=== PATIENT | female | born 1965 | race African-American/Black ===

== ENCOUNTER 2017-05-09 04:28 | Emergency (ER) | payer MEDICAID ==
[~2017-05-09] VITALS: Ht 162.6 cm; Wt 68.0 kg
[~2017-05-09 04:28] MED LIST: ASORBIC ACID PO; ASPI-867 PO; CLOP75TA2 PO; FLUO40CA8 PO; GLYB5TAB7 PO; LIP40 PO; LISI1TAB9 PO; METF1000 PO; METO-298 PO; MULT-1116 PO; NEURONTIN; NPH,100V SQ; OMEP20CA10 PO; PENT400T29 PO; PLAQUENIL PO; PREDNISONE PO; SEROQUEL; VICODIN; VITA15LO PO; [UNRECOGNIZED DRUG - CODE] PO; clindamycin PO
[2017-05-09] MEDS ORDERED: BACITRACIN ZINC OINT UDPKT TOP ONE (06:45)
[2017-05-09] MEDS ORDERED: KETOROLAC 60MG/2ML VIAL IM ONE (07:30)
[2017-05-09] MEDS ORDERED: IBUPROFEN 800MG TABLET PO ONE (11:00)
[2017-05-09 15:29] VITALS: BP 138/79
== END 2017-05-09 19:46 | disposition home or self-care (01) ==
LOC: ER 04:28
DX: S01.01XA Laceration without foreign body of scalp, initial encounter (principal); M25.511 Pain in right shoulder; M54.2 Cervicalgia; M32.9 Systemic lupus erythematosus, unspecified; F12.10 Cannabis abuse, uncomplicated; Y00.XXXA Assault by blunt object, initial encounter; Y93.89 Activity, other specified; Y92.488 Other paved roadways as the place of occurrence of the external cause
CPT/HCPCS: 12001; 70450; 70490; 73030; 99284; J1885; X7700; Z7610

== ENCOUNTER 2018-11-23 04:13 | Inpatient (IN) | payer MEDICAID ==
[2018-11-23] VITALS (19 sets, daily range): BP systolic 84–130; BP diastolic 46–79
[~2018-11-23] VITALS: Ht 170.2 cm; Wt 54.4 kg
[~2018-11-23 04:13] MED LIST changes: +ASA5EC PO; -ASPI-867 PO; +CLOP75TA16 PO; -CLOP75TA2 PO; +GABA800T PO; -METO-298 PO; +METO-385 PO
[2018-11-23] MEDS ORDERED: MORPHINE SULFATE 4 MG/ML CPJ (NOT FOR IM USE) IV STA (06:27)
[2018-11-23] MEDS ORDERED: VANCOMYCIN 1 G PREMIX 200 ML IV SCH (06:30)
[2018-11-23 07:01] LABS: CHLORIDE 101 mEq/L (98-107)
[2018-11-23 07:02] LABS: HEMATOCRIT. 37.2 % (36.0-48.0); HEMOGLOBIN. 11.7 g/dL (12.0-16.0); MEAN CORPUSCULAR HEMOGLOBIN 23.8 pg (28.0-32.0); MEAN CORPUSCULAR VOLUME 75.3 fL (81.0-99.0); MEAN PLATELET VOLUME 7.5 fl (7.4-10.4); PLATELET 256 x1000/uL (130-400); RED BLOOD CELL COUNT 4.93 mill/uL (4.2-5.4); RED CELL DISTRIBUTION WIDTH 15.4 % (11.6-14.6)
[2018-11-23 07:05] LABS: PROTHROMBIN TIME 9.9 sec (9.1-11.1)
[2018-11-23] MEDS ORDERED: DIPHENHYDRAMINE 50MG/ML VIAL IV ONE (07:15)
[2018-11-23 07:53] LABS: PLATELET ESTIMATE NORMAL
[2018-11-23] MEDS ORDERED: PIPERACILLIN/TAZOBACTAM 3.375GM/50ML PREMIX IV ONE (08:15)
[2018-11-23] MEDS ORDERED: PIPERACILLIN/TAZ 3.375G PREMIX 50 ML IV ONE (08:15)
[2018-11-23] MEDS ORDERED: SODIUM CHLORIDE 0.9% 1000ML BAG (SEPSIS BOLUS) IV ONE (08:15)
[2018-11-23] MEDS ORDERED: MAGNESIUM/ALUMINUM HYDROXIDE/SIMETHICONE 30ML UDC PO PRN (09:30)
[2018-11-23] MEDS ORDERED: GUAIFENESIN 200MG/10ML SUGAR FREE UDC PO PRN (09:30)
[2018-11-23] MEDS ORDERED: DOCUSATE SODIUM 100MG CAPSULE PO PRN (09:30)
[2018-11-23] MEDS ORDERED: NA PHOS,M-B/NA PHOS,DI-BA ENEMA 118ML PR PRN (09:30)
[2018-11-23] MEDS ORDERED: ONDANSETRON HCL 4MG/2ML INJ IV PRN (09:30)
[2018-11-23] MEDS ORDERED: IPRATROPIUM/ALBUTEROL 0.5-3(2.5)MG/3ML NEB INH PRN (09:30)
[2018-11-23] MEDS ORDERED: ACETAMINOPHEN 325MG TABLET PO PRN (09:30)
[2018-11-23] MEDS ORDERED: CLONIDINE 0.1MG TABLET PO PRN (09:30)
[2018-11-23] MEDS: LORAZEPAM 2MG/ML CPJ IV PRN ×2 (12:13→17:06)
[2018-11-23] MEDS: DIPHENHYDRAMINE 50MG/ML VIAL IV PRN ×2 (12:13→17:07)
[2018-11-23] MEDS: ENOXAPARIN 40MG/0.4ML SYR SUBCUT SCH (12:28)
[2018-11-23] MEDS: SODIUM CHLORIDE 0.45% 1,000 ML IV SCH (12:29)
[2018-11-23] MEDS: PIPERACILLIN/TAZ 3.375G PREMIX 50 ML IV SCH ×2 (14:44→21:20)
[2018-11-23] MEDS: VANCOMYCIN 1 G PREMIX 200 ML IV SCH (16:59)
[2018-11-23 17:28] LABS: CHLORIDE 102 mEq/L (98-107)
[2018-11-23] MEDS ORDERED: VANCOMYCIN 750 MG PREMIX 150 ML IV SCH (18:00)
[2018-11-24] VITALS (13 sets, daily range): BP systolic 98–139; BP diastolic 63–82
[2018-11-24] MEDS: VANCOMYCIN 1 G PREMIX 200 ML IV SCH ×2 (06:14→18:03)
[2018-11-24] MEDS: PIPERACILLIN/TAZ 3.375G PREMIX 50 ML IV SCH ×3 (06:14→21:26)
[2018-11-24 07:13] LABS: HEMATOCRIT. 34.9 % (36.0-48.0); MEAN CORPUSCULAR HEMOGLOBIN 23.9 pg (28.0-32.0); PLATELET 237 x1000/uL (130-400); RED CELL DISTRIBUTION WIDTH 15.7 % (11.6-14.6)
[2018-11-24 07:31] LABS: CHLORIDE 105 mEq/L (98-107)
[2018-11-24 07:45] LABS: LDL CHOLESTEROL 43 mg/dL (5-100)
[2018-11-24 07:46] LABS: HDL CHOLESTEROL 115 mg/dL (40-59)
[2018-11-24] MEDS: SODIUM CHLORIDE 0.45% 1,000 ML IV SCH (07:48)
[2018-11-24 10:24] LABS: PLATELET ESTIMATE NORMAL
[2018-11-24] MEDS: ENOXAPARIN 40MG/0.4ML SYR SUBCUT SCH (12:43)
[2018-11-24] MEDS: HYDROCODONE/ACETAMINOPHEN 5/325MG TABLET PO PRN ×2 (12:47→21:27)
[2018-11-24] MEDS: ASPIRIN 81MG EC TABLET PO SCH (14:40)
[2018-11-24] MEDS: AMLODIPINE 5MG TABLET PO SCH (21:25)
[2018-11-24] MEDS: DIPHENHYDRAMINE 50MG/ML VIAL IV PRN (21:41)
[2018-11-24] MEDS ORDERED: ZOLPIDEM TARTRATE 5MG TABLET PO PRN (22:45)
[2018-11-25] VITALS (10 sets, daily range): BP systolic 92–122; BP diastolic 50–80
[2018-11-25] MEDS: SODIUM CHLORIDE 0.45% 1,000 ML IV SCH (05:12)
[2018-11-25] MEDS: VANCOMYCIN 1 G PREMIX 200 ML IV SCH ×2 (05:16→17:29)
[2018-11-25] MEDS: PIPERACILLIN/TAZ 3.375G PREMIX 50 ML IV SCH ×3 (05:16→20:56)
[2018-11-25 05:34] LABS: CHLORIDE 109 mEq/L (98-107)
[2018-11-25 05:44] LABS: VANCOMYCIN TROUGH 12.7 ug/mL (5.0-10.0)
[2018-11-25] MEDS: ASPIRIN 81MG EC TABLET PO SCH (10:20)
[2018-11-25] MEDS: AMLODIPINE 5MG TABLET PO SCH ×2 (10:21→21:00)
[2018-11-25] MEDS: MORPHINE SULFATE 4 MG/ML CPJ (NOT FOR IM USE) IV PRN ×2 (10:22→19:11)
[2018-11-25] MEDS: ENOXAPARIN 40MG/0.4ML SYR SUBCUT SCH (11:52)
[2018-11-25] MEDS: DIPHENHYDRAMINE 50MG/ML VIAL IV PRN ×2 (11:52→19:11)
[2018-11-25] MEDS: LORAZEPAM 2MG/ML CPJ IV PRN (11:53)
[2018-11-25] MEDS ORDERED: POTASSIUM CHLORIDE 20MEQ/PACKET PO NR (14:00)
[2018-11-26] VITALS (12 sets, daily range): BP systolic 106–143; BP diastolic 52–78
[2018-11-26] MEDS: SODIUM CHLORIDE 0.45% 1,000 ML IV SCH (01:23)
[2018-11-26] MEDS: MORPHINE SULFATE 4 MG/ML CPJ (NOT FOR IM USE) IV PRN ×4 (01:26→18:04)
[2018-11-26] MEDS: DIPHENHYDRAMINE 50MG/ML VIAL IV PRN ×4 (01:27→18:03)
[2018-11-26] MEDS: PIPERACILLIN/TAZ 3.375G PREMIX 50 ML IV SCH ×2 (05:29→14:38)
[2018-11-26] MEDS: VANCOMYCIN 1 G PREMIX 200 ML IV SCH ×2 (05:29→17:46)
[2018-11-26 07:43] LABS: HEMATOCRIT. 32.7 % (36.0-48.0); HEMOGLOBIN. 10.2 g/dL (12.0-16.0); MEAN CORPUSCULAR HEMOGLOBIN 23.7 pg (28.0-32.0); MEAN CORPUSCULAR VOLUME 75.9 fL (81.0-99.0); MEAN PLATELET VOLUME 7.1 fl (7.4-10.4); PLATELET 247 x1000/uL (130-400); RED BLOOD CELL COUNT 4.31 mill/uL (4.2-5.4); RED CELL DISTRIBUTION WIDTH 15.7 % (11.6-14.6)
[2018-11-26] MEDS: AMLODIPINE 5MG TABLET PO SCH (09:00)
[2018-11-26 09:28] LABS: CHLORIDE 107 mEq/L (98-107)
[2018-11-26] MEDS: LORAZEPAM 2MG/ML CPJ IV PRN (09:37)
[2018-11-26] MEDS: ASPIRIN 81MG EC TABLET PO SCH (09:37)
[2018-11-26] MEDS: ENOXAPARIN 40MG/0.4ML SYR SUBCUT SCH (12:38)
[2018-11-27 07:04] LABS: PLATELET ESTIMATE NORMAL
== END 2018-11-26 20:40 | disposition home health service (06) | DRG 346 ==
LOC: ER 04:13 → 5EST 08:55 → EDBEDREQ 08:59 → EDBEDREQSVC 08:59 → CANRESERV 09:59 → ENRESERV 09:59
PROVIDERS: ADMIT Internal Medicine; ATTEND Internal Medicine
DX: M32.9 Systemic lupus erythematosus, unspecified (principal); L89.214 Pressure ulcer of right hip, stage 4; E11.40 Type 2 diabetes mellitus with diabetic neuropathy, unspecified; E11.51 Type 2 diabetes mellitus with diabetic peripheral angiopathy without gangrene; E11.622 Type 2 diabetes mellitus with other skin ulcer; I11.0 Hypertensive heart disease with heart failure; R65.10 Systemic inflammatory response syndrome (SIRS) of non-infectious origin without acute organ dysfunction; I50.9 Heart failure, unspecified; G82.20 Paraplegia, unspecified; L98.419 Non-pressure chronic ulcer of buttock with unspecified severity; R00.0 Tachycardia, unspecified; F19.10 Other psychoactive substance abuse, uncomplicated; L03.90 Cellulitis, unspecified; D72.819 Decreased white blood cell count, unspecified; E03.9 Hypothyroidism, unspecified; E78.5 Hyperlipidemia, unspecified; F17.200 Nicotine dependence, unspecified, uncomplicated; I25.10 Atherosclerotic heart disease of native coronary artery without angina pectoris; K21.9 Gastro-esophageal reflux disease without esophagitis; L97.329 Non-pressure chronic ulcer of left ankle with unspecified severity; Z79.82 Long term (current) use of aspirin; Z79.84 Long term (current) use of oral hypoglycemic drugs; Z79.899 Other long term (current) drug therapy; Z82.49 Family history of ischemic heart disease and other diseases of the circulatory system; Z83.3 Family history of diabetes mellitus; Z88.2 Allergy status to sulfonamides; Z88.1 Allergy status to other antibiotic agents
CPT/HCPCS: 36415; 71045; 73590; 80048; 80061; 80202; 83605; 83735; 84134; 84145; 84484; 93005; 93306; 96365; 96367; 96375; 97167; 99285; A6261; J1200; J1650; J2060; J2270; J2543; J3370; J7030; J7050

== ENCOUNTER 2019-10-17 12:43 | Inpatient (IN) | payer MEDICAID ==
[~2019-10-17] VITALS: Ht 162.6 cm; Wt 44.9 kg
[~2019-10-17 12:43] MED LIST changes: -ASA5EC PO; +ASPI325T85 PO; -CLOP75TA16 PO; +CLOP75TA4 PO; -OMEP20CA10 PO; +OMEP20CA5 PO
[2019-10-17] MEDS ORDERED: LIDOCAINE HCL/PF 1% 2ML VIAL ONE (14:10)
[2019-10-17] MEDS ORDERED: VANCOMYCIN 1 G PREMIX 200 ML IV ONE (14:30)
[2019-10-17] MEDS ORDERED: SODIUM CHLORIDE 0.9% 1000ML BAG (SEPSIS BOLUS) IV ONE (14:30)
[2019-10-17] MEDS ORDERED: PIPERACILLIN/TAZ 3.375G PREMIX 50 ML IV ONE (14:30)
[2019-10-17 14:57] LABS: BG BASE EXCESS -1.8 mmol/L (-2.0-2.0); BG DEOXYHEMOGLOBIN 2.4 % (0.0-5.0); BG FRACTION INSPIRED OXYGEN 21; BG HCO3 ACT 22.8 mmol/L (22.0-26.0); BG METHEMOGLOBIN 0.3 % (0.0-1.5); BG OXYGEN SATURATION 97.6 % (92.0-98.5); BG OXYHEMOGLOBIN 96.3 % (94.0-97.0); BG PCO2 38.6 mmHg (35.0-45.0); BG PO2 100.6 mmHg (75.0-100.0); BG SAMPLE SITE RIGHT RADIAL; BG TOTAL HEMOGLOBIN 13.4 g/dL (12.0-18.0); BG VENT MODE ROOM AIR
[2019-10-17 15:10] LABS: HEMATOCRIT. 40.9 % (36.0-48.0); HEMOGLOBIN. 13.2 g/dL (12.0-16.0); MEAN CORPUSCULAR HEMOGLOBIN 23.8 pg (28.0-32.0); MEAN CORPUSCULAR VOLUME 73.8 fL (81.0-99.0); MEAN PLATELET VOLUME 6.7 fl (7.4-10.4); PLATELET 613 x1000/uL (130-400); RED BLOOD CELL COUNT 5.54 mill/uL (4.2-5.4); RED CELL DISTRIBUTION WIDTH 16.4 % (11.6-14.6)
[2019-10-17 15:15] LABS: CHLORIDE 100 mEq/L (98-107)
[2019-10-17 15:18] LABS: INR 1.1; PROTHROMBIN TIME 10.9 sec (9.6-11.0)
[2019-10-17 15:42] LABS: ATYPICAL LYMPHOCYTES 1; NUCLEATED RED BLOOD CELLS 3 /100 WBC
[2019-10-17 15:43] LABS: PLATELET ESTIMATE INCREAS
[2019-10-17 15:47] LABS: CLARITY URINE TURBID (CLEAR); COLOR URINE YELLOW (YELLOW); KETONES URINE 2+ (NEGATIVE); LEUKOCYTE ESTERASE URINE TRACE (NEGATIVE); NITRITE URINE POSITIVE (NEGATIVE); OCCULT BLOOD URINE 3+ (NEGATIVE); PH URINE 5.5 (4.5-8.0); PROTEIN URINE 2+ (NEGATIVE); SPECIFIC GRAVITY URINE 1.019 (1.005-1.030); UROBILINOGEN URINE 0.2 E.U./dL (0.2-1.0)
[2019-10-17] MEDS ORDERED: DIPHENHYDRAMINE 50MG/ML VIAL IV ONE ×2 (16:00)
[2019-10-17] MEDS ORDERED: MORPHINE SULFATE 4 MG/ML CPJ (NOT FOR IM USE) IV ONE ×2 (16:29→17:15)
[2019-10-17] MEDS ORDERED: IPRATROPIUM/ALBUTEROL 0.5-3(2.5)MG/3ML NEB HHN PRN (17:45)
[2019-10-17] MEDS ORDERED: PIPERACILLIN/TAZ 3.375G PREMIX 50 ML IV SCH (17:45)
[2019-10-17] MEDS ORDERED: CLONIDINE 0.1MG TABLET PO PRN (17:45)
[2019-10-17] MEDS ORDERED: ONDANSETRON HCL 4MG/2ML INJ IV PRN (17:45)
[2019-10-17] MEDS ORDERED: ZINC OXIDE 20% OINT 30GM TOP PRN (18:15)
[2019-10-17 18:49] LABS: PHOSPHORUS 3.9 mg/dL (2.5-4.9)
[2019-10-17 22:00] VITALS: BP_SYST 193; BP_DIAS 163; BP_DIAS 63
[2019-10-17] MEDS: VANCOMYCIN 750 MG PREMIX 150 ML IV SCH (23:23)
[2019-10-17] MEDS: SODIUM CHLORIDE 0.9% 1,000 ML IV SCH (23:23)
[2019-10-17] MEDS: DIPHENHYDRAMINE 50MG/ML VIAL IV PRN (23:24)
[2019-10-17] MEDS: MORPHINE SULFATE 2 MG/ML CPJ (NOT FOR IM USE) IV PRN (23:24)
[2019-10-18] VITALS (7 sets, daily range): BP systolic 84–191; BP diastolic 43–63
[2019-10-18] MEDS: PIPERACILLIN/TAZOBACTAM 2.25 G in DEXTROSE 5% WATER 50 ML IV SCH ×4 (01:28→17:12)
[2019-10-18] MEDS: VANCOMYCIN 750 MG PREMIX 150 ML IV SCH ×2 (05:47→06:44)
[2019-10-18] MEDS: DIPHENHYDRAMINE 50MG/ML VIAL IV PRN (06:54)
[2019-10-18 10:40] LABS: HEMOGLOBIN. 10.6 g/dL (12.0-16.0); MEAN CORPUSCULAR HEMOGLOBIN 23.6 pg (28.0-32.0); MEAN CORPUSCULAR VOLUME 73.9 fL (81.0-99.0); MEAN PLATELET VOLUME 6.6 fl (7.4-10.4); PLATELET 425 x1000/uL (130-400); RED BLOOD CELL COUNT 4.47 mill/uL (4.2-5.4); RED CELL DISTRIBUTION WIDTH 15.7 % (11.6-14.6)
[2019-10-18 10:51] LABS: CHLORIDE 105 mEq/L (98-107)
[2019-10-18 10:58] LABS: LDL CHOLESTEROL 45 mg/dL (5-100)
[2019-10-18 10:59] LABS: HDL CHOLESTEROL 78 mg/dL (40-59)
[2019-10-18] MEDS: ACETAMINOPHEN 325MG TABLET PO PRN (11:18)
[2019-10-18] MEDS ORDERED: MEDICATION NOT ON FORMULARY EA (Gabapentin (Neurontin) 1 TAB) PO SCH (13:00)
[2019-10-18] MEDS: GABAPENTIN 400MG CAPSULE PO SCH ×2 (13:12→17:11)
[2019-10-18 16:03] LABS: PLATELET ESTIMATE INCREASED
[2019-10-18 16:48] LABS: HEPATITIS B SURFACE ANTIGEN NEGATIVE
[2019-10-18] MEDS ORDERED: PREDNISONE 20 MG PO SCH (17:00)
[2019-10-18] MEDS: PREDNISONE 20MG TABLET PO SCH (17:11)
[2019-10-18 17:17] LABS: HEPATITIS A AB IGM NEGATIVE (NEGATIVE)
[2019-10-18] MEDS ORDERED: MEDICATION NOT ON FORMULARY EA (Fluoxetine Hcl (Prozac) 40 MG) PO SCH (21:00)
[2019-10-18] MEDS: ATORVASTATIN CALCIUM 40MG TABLET PO SCH (22:15)
[2019-10-18] MEDS: VANCOMYCIN 1 G PREMIX 200 ML IV SCH (22:15)
[2019-10-18] MEDS: FLUOXETINE HCL 20MG CAPSULE PO SCH (22:15)
[2019-10-18] MEDS: SODIUM CHLORIDE 0.9% 1,000 ML IV SCH (22:16)
[2019-10-19] VITALS: BP 109/45
[2019-10-19] MEDS: PIPERACILLIN/TAZOBACTAM 2.25 G in DEXTROSE 5% WATER 50 ML IV SCH ×3 (00:34→12:25)
[2019-10-19 04:00] VITALS: BP 91/44
[2019-10-19 07:30] LABS: CHLORIDE 105 mEq/L (98-107)
[2019-10-19 07:50] LABS: T4 FREE 0.89 ng/dL (0.76-1.46)
[2019-10-19 08:00] VITALS: BP 83/38
[2019-10-19 08:15] LABS: CREATINE KINASE 7587 IU/L (26-192)
[2019-10-19] MEDS ORDERED: PLAQUENIL PO SCH (09:00)
[2019-10-19] MEDS ORDERED: MEDICATION NOT ON FORMULARY EA (Multivitamin (Multi-Vitamin Daily) 1 EACH) PO SCH (09:00)
[2019-10-19] MEDS: HYDROXYCHLOROQUINE SULFATE 200MG TABLET PO SCH (10:01)
[2019-10-19] MEDS: ASCORBIC ACID 250 MG TABLET PO SCH (10:01)
[2019-10-19] MEDS: OMEPRAZOLE 20MG CAPSULE EXTENDED RELEASE PO SCH (10:01)
[2019-10-19] MEDS: PREDNISONE 20MG TABLET PO SCH ×2 (10:02→17:25)
[2019-10-19] MEDS: MULTIVITAMINS,THER W-MINERALS TABLET PO SCH (10:02)
[2019-10-19] MEDS: VANCOMYCIN 1 G PREMIX 200 ML IV SCH (10:02)
[2019-10-19] MEDS: GABAPENTIN 400MG CAPSULE PO SCH ×3 (10:21→17:25)
[2019-10-19 12:00] VITALS: BP 86/48
[2019-10-19] MEDS: MIDODRINE HCL 5MG TABLET PO SCH ×2 (13:45→17:25)
[2019-10-19] MEDS: MORPHINE SULFATE 2 MG/ML CPJ (NOT FOR IM USE) IV PRN ×2 (14:40→20:41)
[2019-10-19] MEDS: DIPHENHYDRAMINE 50MG/ML VIAL IV PRN (15:54)
[2019-10-19 16:00] VITALS: BP 92/58
[2019-10-19] MEDS: MEROPENEM 1,000 MG in SODIUM CHLORIDE 0.9% 100 ML IV SCH ×2 (16:59→21:52)
[2019-10-19] MEDS: SODIUM CHLORIDE 0.9% 1,000 ML IV SCH (17:00)
[2019-10-19 17:21] LABS: HEMATOCRIT. 30.2 % (36.0-48.0); HEMOGLOBIN. 9.7 g/dL (12.0-16.0); MEAN CORPUSCULAR HEMOGLOBIN 23.8 pg (28.0-32.0); MEAN CORPUSCULAR VOLUME 73.8 fL (81.0-99.0); MEAN PLATELET VOLUME 6.8 fl (7.4-10.4); PLATELET 359 x1000/uL (130-400); RED BLOOD CELL COUNT 4.08 mill/uL (4.2-5.4); RED CELL DISTRIBUTION WIDTH 16.1 % (11.6-14.6)
[2019-10-19 17:27] LABS: CHLORIDE 107 mEq/L (98-107)
[2019-10-19 17:40] LABS: CREATINE KINASE MB FRACTION 47.6 ng/mL (0.5-3.6)
[2019-10-19] MEDS: GUAIFENESIN 200MG/10ML SUGAR FREE UDC PO PRN (17:49)
[2019-10-19 18:09] LABS: CREATINE KINASE 10616 IU/L (26-192)
[2019-10-19 18:17] LABS: PLATELET ESTIMATE NORMAL
[2019-10-19 20:00] VITALS: BP 101/56
[2019-10-19] MEDS: FLUOXETINE HCL 20MG CAPSULE PO SCH (20:42)
[2019-10-19] MEDS: ATORVASTATIN CALCIUM 40MG TABLET PO SCH (20:42)
[2019-10-19] MEDS: VANCOMYCIN 750 MG PREMIX 150 ML IV SCH (23:22)
[2019-10-20] VITALS: BP 104/59
[2019-10-20] MEDS: SODIUM CHLORIDE 0.9% 1,000 ML IV SCH ×3 (00:54→21:01)
[2019-10-20] MEDS: GUAIFENESIN 200MG/10ML SUGAR FREE UDC PO PRN ×2 (01:15→10:02)
[2019-10-20 04:00] VITALS: BP 103/73
[2019-10-20] MEDS: MORPHINE SULFATE 2 MG/ML CPJ (NOT FOR IM USE) IV PRN ×3 (04:40→17:05)
[2019-10-20] MEDS: MEROPENEM 1,000 MG in SODIUM CHLORIDE 0.9% 100 ML IV SCH ×3 (06:01→21:01)
[2019-10-20 07:33] LABS: HEMATOCRIT. 28.5 % (36.0-48.0); HEMOGLOBIN. 9.2 g/dL (12.0-16.0); MEAN CORPUSCULAR HEMOGLOBIN 23.9 pg (28.0-32.0); MEAN CORPUSCULAR VOLUME 74.1 fL (81.0-99.0); MEAN PLATELET VOLUME 6.5 fl (7.4-10.4); PLATELET 358 x1000/uL (130-400); RED BLOOD CELL COUNT 3.85 mill/uL (4.2-5.4); RED CELL DISTRIBUTION WIDTH 15.9 % (11.6-14.6)
[2019-10-20 07:47] LABS: CHLORIDE 106 mEq/L (98-107)
[2019-10-20 08:00] VITALS: BP 85/44
[2019-10-20] MEDS: MULTIVITAMINS,THER W-MINERALS TABLET PO SCH (09:50)
[2019-10-20] MEDS: ASCORBIC ACID 250 MG TABLET PO SCH (09:50)
[2019-10-20] MEDS: MIDODRINE HCL 5MG TABLET PO SCH ×3 (09:51→18:46)
[2019-10-20] MEDS: HYDROXYCHLOROQUINE SULFATE 200MG TABLET PO SCH (09:51)
[2019-10-20] MEDS: GABAPENTIN 400MG CAPSULE PO SCH ×3 (09:51→17:05)
[2019-10-20] MEDS: OMEPRAZOLE 20MG CAPSULE EXTENDED RELEASE PO SCH (09:51)
[2019-10-20] MEDS: PREDNISONE 20MG TABLET PO SCH ×2 (10:02→17:05)
[2019-10-20] MEDS: VANCOMYCIN 750 MG PREMIX 150 ML IV SCH ×2 (11:51→22:43)
[2019-10-20 12:00] VITALS: BP 83/35
[2019-10-20 12:27] LABS: PLATELET ESTIMATE NORMAL
[2019-10-20 15:54] LABS: CREATINE KINASE 11778 IU/L (26-192)
[2019-10-20 16:00] VITALS: BP 97/53
[2019-10-20] MEDS: OXYCODONE HCL/ACETAMINOPHEN 5/325MG TABLET PO PRN (18:50)
[2019-10-20 20:00] VITALS: BP 100/60
[2019-10-20] MEDS: FLUOXETINE HCL 20MG CAPSULE PO SCH (21:01)
[2019-10-20] MEDS: ATORVASTATIN CALCIUM 40MG TABLET PO SCH (21:01)
[2019-10-20] MEDS: DIPHENHYDRAMINE 50MG/ML VIAL IV PRN (22:43)
[2019-10-21] MEDS: MORPHINE SULFATE 2 MG/ML CPJ (NOT FOR IM USE) IV PRN ×4 (02:48→23:02)
[2019-10-21 04:00] VITALS: BP 107/62
[2019-10-21] MEDS: MEROPENEM 1,000 MG in SODIUM CHLORIDE 0.9% 100 ML IV SCH ×3 (05:33→21:00)
[2019-10-21] MEDS: OXYCODONE HCL/ACETAMINOPHEN 5/325MG TABLET PO PRN (05:34)
[2019-10-21] MEDS: GUAIFENESIN 200MG/10ML SUGAR FREE UDC PO PRN ×2 (06:19→21:00)
[2019-10-21 07:01] LABS: HEMATOCRIT. 27.5 % (36.0-48.0); HEMOGLOBIN. 8.9 g/dL (12.0-16.0); MEAN CORPUSCULAR HEMOGLOBIN 23.7 pg (28.0-32.0); MEAN CORPUSCULAR VOLUME 73.5 fL (81.0-99.0); MEAN PLATELET VOLUME 6.8 fl (7.4-10.4); PLATELET 354 x1000/uL (130-400); RED BLOOD CELL COUNT 3.74 mill/uL (4.2-5.4); RED CELL DISTRIBUTION WIDTH 15.9 % (11.6-14.6)
[2019-10-21 07:19] LABS: CHLORIDE 105 mEq/L (98-107)
[2019-10-21 08:00] VITALS: BP 102/50
[2019-10-21] MEDS: DIPHENHYDRAMINE 50MG/ML VIAL IV PRN ×2 (08:34→17:44)
[2019-10-21 08:37] LABS: CREATINE KINASE 11095 IU/L (26-192)
[2019-10-21] MEDS: GABAPENTIN 400MG CAPSULE PO SCH ×3 (09:27→16:48)
[2019-10-21] MEDS: MULTIVITAMINS,THER W-MINERALS TABLET PO SCH (09:28)
[2019-10-21] MEDS: HYDROXYCHLOROQUINE SULFATE 200MG TABLET PO SCH (09:28)
[2019-10-21] MEDS: MIDODRINE HCL 5MG TABLET PO SCH ×3 (09:28→16:50)
[2019-10-21] MEDS: PREDNISONE 20MG TABLET PO SCH ×2 (09:28→16:48)
[2019-10-21] MEDS: OMEPRAZOLE 20MG CAPSULE EXTENDED RELEASE PO SCH (09:28)
[2019-10-21] MEDS: ASCORBIC ACID 250 MG TABLET PO SCH (09:28)
[2019-10-21 12:00] VITALS: BP 111/58
[2019-10-21] MEDS: VANCOMYCIN 750 MG PREMIX 150 ML IV SCH ×2 (12:35→23:02)
[2019-10-21] MEDS: SODIUM CHLORIDE 0.9% 1,000 ML IV SCH (12:36)
[2019-10-21 13:21] LABS: PLATELET ESTIMATE NORMAL
[2019-10-21 16:00] VITALS: BP 96/56
[2019-10-21] MEDS: SODIUM CHLORIDE 0.45% 1,000 ML IV SCH (16:51)
[2019-10-21 20:00] VITALS: BP 108/62
[2019-10-21] MEDS: FLUOXETINE HCL 20MG CAPSULE PO SCH (20:23)
[2019-10-21] MEDS: ATORVASTATIN CALCIUM 40MG TABLET PO SCH (21:00)
[2019-10-21] MEDS: ACETAMINOPHEN 325MG TABLET PO PRN (21:06)
[2019-10-22] VITALS: BP 102/53
[2019-10-22] MEDS: DIPHENHYDRAMINE 50MG/ML VIAL IV PRN ×4 (01:15→22:38)
[2019-10-22 01:53] LABS: CREATINE KINASE MB FRACTION 21.1 ng/mL (0.5-3.6)
[2019-10-22 04:00] VITALS: BP 111/55
[2019-10-22] MEDS: OXYCODONE HCL/ACETAMINOPHEN 5/325MG TABLET PO PRN ×2 (04:18→21:04)
[2019-10-22] MEDS: MEROPENEM 1,000 MG in SODIUM CHLORIDE 0.9% 100 ML IV SCH ×3 (05:11→21:03)
[2019-10-22 07:23] LABS: CREATINE KINASE MB FRACTION 17.4 ng/mL (0.5-3.6)
[2019-10-22 08:00] VITALS: BP 100/65
[2019-10-22] MEDS: OMEPRAZOLE 20MG CAPSULE EXTENDED RELEASE PO SCH (08:12)
[2019-10-22] MEDS: MORPHINE SULFATE 2 MG/ML CPJ (NOT FOR IM USE) IV PRN ×3 (08:13→17:19)
[2019-10-22] MEDS: GABAPENTIN 400MG CAPSULE PO SCH ×3 (08:43→17:18)
[2019-10-22] MEDS: HYDROXYCHLOROQUINE SULFATE 200MG TABLET PO SCH (08:44)
[2019-10-22] MEDS: MULTIVITAMINS,THER W-MINERALS TABLET PO SCH (08:44)
[2019-10-22] MEDS: MIDODRINE HCL 5MG TABLET PO SCH ×3 (08:44→17:17)
[2019-10-22] MEDS: PREDNISONE 20MG TABLET PO SCH ×2 (08:49→17:17)
[2019-10-22] MEDS: ASCORBIC ACID 250 MG TABLET PO SCH (08:49)
[2019-10-22 09:06] LABS: G6PD RBC 3.61 x10E6/uL (3.77-5.28)
[2019-10-22] MEDS: VANCOMYCIN 750 MG PREMIX 150 ML IV SCH ×2 (11:14→22:39)
[2019-10-22] MEDS: SODIUM CHLORIDE 0.45% 1,000 ML IV SCH (11:14)
[2019-10-22 12:00] VITALS: BP 109/56
[2019-10-22 13:06] LABS: COMPLEMENT C3 100 mg/dL (82-167)
[2019-10-22 13:12] LABS: CREATINE KINASE MB FRACTION 19.5 ng/mL (0.5-3.6)
[2019-10-22 16:00] VITALS: BP 122/71
[2019-10-22 19:56] VITALS: BP 110/60
[2019-10-22] MEDS: FLUOXETINE HCL 20MG CAPSULE PO SCH (20:59)
[2019-10-22] MEDS: ATORVASTATIN CALCIUM 40MG TABLET PO SCH (20:59)
[2019-10-22 21:45] LABS: HEMATOCRIT 27.8 % (36.0-48.0); MEAN CORPUSCULAR HEMOGLOBIN 23.8 pg (28.0-32.0); MEAN CORPUSCULAR VOLUME 73.4 fL (81.0-99.0); PLATELET 365 x1000/uL (130-400); RED BLOOD CELL COUNT 3.79 mill/uL (4.2-5.4); RED CELL DISTRIBUTION WIDTH 15.5 % (11.6-14.6)
[2019-10-22 21:59] LABS: CHLORIDE 105 mEq/L (98-107)
[2019-10-22 22:09] LABS: CREATINE KINASE MB FRACTION 14.7 ng/mL (0.5-3.6)
[2019-10-22 22:36] LABS: CREATINE KINASE 7954 IU/L (26-192)
[2019-10-23] VITALS: BP 103/55
[2019-10-23] MEDS: MORPHINE SULFATE 2 MG/ML CPJ (NOT FOR IM USE) IV PRN ×4 (00:55→17:51)
[2019-10-23] MEDS: SODIUM CHLORIDE 0.45% 1,000 ML IV SCH (00:57)
[2019-10-23 02:21] LABS: CREATINE KINASE MB FRACTION 9.1 ng/mL (0.5-3.6)
[2019-10-23 04:00] VITALS: BP 150/85
[2019-10-23] MEDS: DIPHENHYDRAMINE 50MG/ML VIAL IV PRN ×2 (04:27→20:25)
[2019-10-23] MEDS: GUAIFENESIN 200MG/10ML SUGAR FREE UDC PO PRN (04:30)
[2019-10-23] MEDS: MEROPENEM 1,000 MG in SODIUM CHLORIDE 0.9% 100 ML IV SCH ×2 (05:21→17:50)
[2019-10-23 07:55] LABS: HEMATOCRIT. 27.2 % (36.0-48.0)
[2019-10-23 08:00] VITALS: BP 109/63
[2019-10-23 08:03] LABS: HEMOGLOBIN. 8.7 g/dL (12.0-16.0); MEAN CORPUSCULAR HEMOGLOBIN 23.4 pg (28.0-32.0); MEAN CORPUSCULAR VOLUME 73.2 fL (81.0-99.0); MEAN PLATELET VOLUME 6.9 fl (7.4-10.4); PLATELET 350 x1000/uL (130-400); RED BLOOD CELL COUNT 3.72 mill/uL (4.2-5.4)
[2019-10-23 08:38] LABS: CHLORIDE 104 mEq/L (98-107)
[2019-10-23 08:48] LABS: CREATINE KINASE MB FRACTION 10.7 ng/mL (0.5-3.6)
[2019-10-23 08:59] LABS: CREATINE KINASE 6591 IU/L (26-192)
[2019-10-23] MEDS: MIDODRINE HCL 5MG TABLET PO SCH ×3 (09:11→17:50)
[2019-10-23] MEDS: MULTIVITAMINS,THER W-MINERALS TABLET PO SCH (09:11)
[2019-10-23] MEDS: GABAPENTIN 400MG CAPSULE PO SCH ×3 (09:11→17:50)
[2019-10-23] MEDS: OMEPRAZOLE 20MG CAPSULE EXTENDED RELEASE PO SCH (09:11)
[2019-10-23] MEDS: ASCORBIC ACID 250 MG TABLET PO SCH (09:12)
[2019-10-23] MEDS: HYDROXYCHLOROQUINE SULFATE 200MG TABLET PO SCH (09:12)
[2019-10-23] MEDS: PREDNISONE 20MG TABLET PO SCH ×2 (09:23→17:50)
[2019-10-23 10:28] LABS: PLATELET ESTIMATE NORMAL
[2019-10-23 12:00] VITALS: BP 107/56
[2019-10-23] MEDS: VANCOMYCIN 750 MG PREMIX 150 ML IV SCH ×2 (14:02→22:39)
[2019-10-23 14:09] LABS: HIV SCREEN 4G Non Reactive (Non Reactive)
[2019-10-23 20:00] VITALS: BP 127/53
[2019-10-23] MEDS: ATORVASTATIN CALCIUM 40MG TABLET PO SCH (20:17)
[2019-10-23] MEDS: FLUOXETINE HCL 20MG CAPSULE PO SCH (20:17)
[2019-10-23] MEDS: OXYCODONE HCL/ACETAMINOPHEN 5/325MG TABLET PO PRN (20:18)
[2019-10-24] VITALS: BP 107/65
[2019-10-24] MEDS: MEROPENEM 1,000 MG in SODIUM CHLORIDE 0.9% 100 ML IV SCH ×3 (01:26→17:44)
[2019-10-24] MEDS: MORPHINE SULFATE 2 MG/ML CPJ (NOT FOR IM USE) IV PRN ×4 (01:31→23:37)
[2019-10-24 01:41] LABS: CREATINE KINASE MB FRACTION 7.4 ng/mL (0.5-3.6)
[2019-10-24] MEDS: SODIUM CHLORIDE 0.45% 1,000 ML IV SCH ×2 (02:40→23:26)
[2019-10-24 04:00] VITALS: BP 101/55
[2019-10-24 06:31] LABS: HEMATOCRIT. 25.8 % (36.0-48.0); HEMOGLOBIN. 7.5 g/dL (12.0-16.0); MEAN CORPUSCULAR HEMOGLOBIN 21.1 pg (28.0-32.0); MEAN CORPUSCULAR VOLUME 73.1 fL (81.0-99.0); MEAN PLATELET VOLUME 6.9 fl (7.4-10.4); PLATELET 365 x1000/uL (130-400); RED BLOOD CELL COUNT 3.53 mill/uL (4.2-5.4); RED CELL DISTRIBUTION WIDTH 15.9 % (11.6-14.6)
[2019-10-24 06:39] LABS: CHLORIDE 101 mEq/L (98-107)
[2019-10-24 07:01] LABS: CREATINE KINASE MB FRACTION 6.1 ng/mL (0.5-3.6)
[2019-10-24 07:22] LABS: CREATINE KINASE 4874 IU/L (26-192)
[2019-10-24 08:00] VITALS: BP 100/53
[2019-10-24] MEDS: GABAPENTIN 400MG CAPSULE PO SCH ×3 (08:23→16:42)
[2019-10-24] MEDS: MIDODRINE HCL 5MG TABLET PO SCH ×3 (08:24→16:42)
[2019-10-24] MEDS: OXYCODONE HCL/ACETAMINOPHEN 5/325MG TABLET PO PRN (08:25)
[2019-10-24] MEDS: FAMOTIDINE 20MG TABLET PO SCH (08:26)
[2019-10-24] MEDS: MULTIVITAMINS,THER W-MINERALS TABLET PO SCH (08:26)
[2019-10-24] MEDS: HYDROXYCHLOROQUINE SULFATE 200MG TABLET PO SCH (08:26)
[2019-10-24] MEDS: ASCORBIC ACID 250 MG TABLET PO SCH (08:26)
[2019-10-24] MEDS: DIPHENHYDRAMINE 50MG/ML VIAL IV PRN ×2 (08:27→17:45)
[2019-10-24 08:37] LABS: *AMPHETAMINES SCREEN URINE NEGATIVE (NEGATIVE); *BARBITURATES SCREEN URINE NEGATIVE (NEGATIVE); *BENZODIAZEPINES SCREEN URINE NEGATIVE (NEGATIVE); *COCAINE SCREEN URINE NEGATIVE (NEGATIVE)
[2019-10-24 08:38] LABS: OPIATES URINE SCREEN PRESUMTIVE POSITIVE (NEGATIVE)
[2019-10-24 08:39] LABS: CANNABINOID URINE SCREEN PRESUMTIVE POSITIVE (NEGATIVE); METHADONE URINE SCREEN NEGATIVE (NEGATIVE); PHENCYCLIDINE URINE SCREEN NEGATIVE (NEGATIVE)
[2019-10-24] MEDS: PREDNISONE 20MG TABLET PO SCH ×2 (08:40→17:44)
[2019-10-24 10:10] LABS: DRVVT LA 45.2 sec (0.0-47.0); PTT-LA 58.5 sec (0.0-51.9)
[2019-10-24 12:00] VITALS: BP 91/46
[2019-10-24] MEDS: VANCOMYCIN 750 MG PREMIX 150 ML IV SCH ×2 (14:52→23:22)
[2019-10-24] MEDS: GUAIFENESIN 200MG/10ML SUGAR FREE UDC PO PRN (15:22)
[2019-10-24 16:00] VITALS: BP 101/49
[2019-10-24 17:06] LABS: ANTI-CENTROMERE B ANTIBODIES < 0.2 AI (0.0-0.9); ANTI-DNA DOUBLE STRANDED QUANT 1 IU/mL (0-9); RNP ANTIBODY 2.3 AI (0.0-0.9); SMITH ANTIBODY < 0.2 AI (0.0-0.9)
[2019-10-24 20:00] VITALS: BP 107/53
[2019-10-24] MEDS: FLUOXETINE HCL 20MG CAPSULE PO SCH (23:22)
[2019-10-24] MEDS: ATORVASTATIN CALCIUM 40MG TABLET PO SCH (23:26)
[2019-10-25] VITALS (8 sets, daily range): BP systolic 99–120; BP diastolic 53–70
[2019-10-25] MEDS: DIPHENHYDRAMINE 50MG/ML VIAL IV PRN ×4 (00:37→15:02)
[2019-10-25] MEDS: GUAIFENESIN 200MG/10ML SUGAR FREE UDC PO PRN (02:07)
[2019-10-25] MEDS: ACETAMINOPHEN 325MG TABLET PO PRN ×2 (02:21→20:52)
[2019-10-25] MEDS: MORPHINE SULFATE 2 MG/ML CPJ (NOT FOR IM USE) IV PRN ×4 (04:29→18:39)
[2019-10-25] MEDS: MEROPENEM 1,000 MG in SODIUM CHLORIDE 0.9% 100 ML IV SCH ×3 (06:01→18:08)
[2019-10-25] MEDS: OXYCODONE HCL/ACETAMINOPHEN 5/325MG TABLET PO PRN (06:12)
[2019-10-25 07:36] LABS: CHLORIDE 102 mEq/L (98-107)
[2019-10-25 07:48] LABS: HEMATOCRIT. 30.4 % (36.0-48.0); MEAN CORPUSCULAR HEMOGLOBIN 24.5 pg (28.0-32.0); MEAN CORPUSCULAR VOLUME 74.3 fL (81.0-99.0); MEAN PLATELET VOLUME 7.4 fl (7.4-10.4); PLATELET 378 x1000/uL (130-400)
[2019-10-25] MEDS: MIDODRINE HCL 5MG TABLET PO SCH ×3 (09:14→18:08)
[2019-10-25] MEDS: HYDROXYCHLOROQUINE SULFATE 200MG TABLET PO SCH (09:15)
[2019-10-25] MEDS: MULTIVITAMINS,THER W-MINERALS TABLET PO SCH (09:15)
[2019-10-25] MEDS: FAMOTIDINE 20MG TABLET PO SCH (09:15)
[2019-10-25] MEDS: ASCORBIC ACID 250 MG TABLET PO SCH (09:15)
[2019-10-25] MEDS: PREDNISONE 20MG TABLET PO SCH ×2 (09:15→18:08)
[2019-10-25] MEDS: GABAPENTIN 400MG CAPSULE PO SCH ×3 (09:15→18:08)
[2019-10-25 10:37] LABS: NUCLEATED RED BLOOD CELLS 1 /100 WBC; PLATELET ESTIMATE NORMAL
[2019-10-25] MEDS: VANCOMYCIN 750 MG PREMIX 150 ML IV SCH ×2 (11:00→23:00)
[2019-10-25 13:03] LABS: NUCLEATED RED BLOOD CELLS 1 /100 WBC; PLATELET ESTIMATE NORMAL
[2019-10-25] MEDS: FLUOXETINE HCL 20MG CAPSULE PO SCH (20:37)
[2019-10-25] MEDS: ATORVASTATIN CALCIUM 40MG TABLET PO SCH (20:37)
[2019-10-25] MEDS: SODIUM CHLORIDE 0.45% 1,000 ML IV SCH (20:38)
[2019-10-26] VITALS: BP 106/61
[2019-10-26] MEDS: MORPHINE SULFATE 2 MG/ML CPJ (NOT FOR IM USE) IV PRN ×5 (01:55→21:57)
[2019-10-26] MEDS: MEROPENEM 1,000 MG in SODIUM CHLORIDE 0.9% 100 ML IV SCH ×3 (03:03→19:08)
[2019-10-26 04:00] VITALS: BP 118/64
[2019-10-26 06:06] LABS: HEXAGONAL PHASE PHOSPHOLIPID 2 sec (0-11); LUPUS ANTICOAG INTERPRETATION Comment: (.); PTT-LA MIX 56.2 sec (0.0-48.9)
[2019-10-26] MEDS: OXYCODONE HCL/ACETAMINOPHEN 5/325MG TABLET PO PRN ×2 (06:34→20:22)
[2019-10-26 06:43] LABS: CHLORIDE 100 mEq/L (98-107)
[2019-10-26 08:00] VITALS: BP 95/54
[2019-10-26] MEDS ORDERED: BUPIVACAINE HCL/PF 0.25% (2.5MG/ML) 10ML ONE (08:11)
[2019-10-26] MEDS ORDERED: VANCOMYCIN HCL 1 GM/VIAL ONE (08:11)
[2019-10-26] MEDS ORDERED: SODIUM CHLORIDE 0.9% 10ML VIAL ONE ×2 (08:58→09:24)
[2019-10-26] MEDS ORDERED: EPHEDRINE SULFATE 50MG/ML VIAL ONE (08:58)
[2019-10-26] MEDS ORDERED: DEXAMETHASONE 4MG/ML 1ML VIAL ONE (08:59)
[2019-10-26] MEDS ORDERED: PHENYLEPHRINE HCL 10 MG/ML 1ML (IV VIAL) IV ONE (08:59)
[2019-10-26] MEDS ORDERED: FENTANYL CITRATE/PF 50MCG/ML 2ML VIAL ONE (09:12)
[2019-10-26] MEDS ORDERED: MIDAZOLAM HCL 2 MG/2 ML VIAL ONE (09:12)
[2019-10-26] MEDS ORDERED: ROCURONIUM BROMIDE 10MG/ML VIAL 5ML IV ONE (09:16)
[2019-10-26] MEDS ORDERED: CEFAZOLIN SODIUM 1000MG/VIAL ONE (09:24)
[2019-10-26] MEDS: HYDROMORPHONE HCL/PF 2MG/ML CPJ IV PRN ×2 (11:27→11:51)
[2019-10-26 12:25] VITALS: BP 99/53
[2019-10-26] MEDS: GABAPENTIN 400MG CAPSULE PO SCH ×3 (13:00→17:29)
[2019-10-26] MEDS: MIDODRINE HCL 5MG TABLET PO SCH ×3 (13:00→17:29)
[2019-10-26 13:06] LABS: ALDOLASE 61.5 U/L (3.3-10.3); ANGIOTENSION CONVERTING ENZYME 47 U/L (14-82); ANTI-PROTEINASE 3 ABS < 3.5 U/mL (0.0-3.5)
[2019-10-26] MEDS: MULTIVITAMINS,THER W-MINERALS TABLET PO SCH (13:09)
[2019-10-26] MEDS: FAMOTIDINE 20MG TABLET PO SCH (13:09)
[2019-10-26] MEDS: PREDNISONE 20MG TABLET PO SCH ×2 (13:09→17:29)
[2019-10-26] MEDS: HYDROXYCHLOROQUINE SULFATE 200MG TABLET PO SCH (13:10)
[2019-10-26] MEDS: ASCORBIC ACID 250 MG TABLET PO SCH (13:10)
[2019-10-26] MEDS: DIPHENHYDRAMINE 50MG/ML VIAL IV PRN (14:41)
[2019-10-26 15:10] LABS: ANTI-MYELOPEROXIDASE AB < 9.0 U/mL (0.0-9.0)
[2019-10-26] MEDS: VANCOMYCIN 750 MG PREMIX 150 ML IV SCH (15:40)
[2019-10-26 16:00] VITALS: BP 110/56
[2019-10-26] MEDS: SODIUM CHLORIDE 0.45% 1,000 ML IV SCH (17:32)
[2019-10-26 20:00] VITALS: BP 119/67
[2019-10-26] MEDS: ATORVASTATIN CALCIUM 40MG TABLET PO SCH (20:22)
[2019-10-26] MEDS: FLUOXETINE HCL 20MG CAPSULE PO SCH (20:22)
[2019-10-26 21:42] LABS: BASOPHILS % 0.3 % (0.0-2.0); EOSINOPHILS % 0.1 % (0.0-5.0); HEMATOCRIT. 30.6 % (36.0-48.0); HEMOGLOBIN. 9.8 g/dL (12.0-16.0); LYMPHOCYTES % 9.2 % (20.0-50.0); MEAN CORPUSCULAR HEMOGLOBIN 24.1 pg (28.0-32.0); MEAN CORPUSCULAR VOLUME 75.3 fL (81.0-99.0); MEAN PLATELET VOLUME 7.3 fl (7.4-10.4); MONOCYTES % 11.4 % (2.0-8.0); PLATELET 395 x1000/uL (130-400); RED BLOOD CELL COUNT 4.06 mill/uL (4.2-5.4); RED CELL DISTRIBUTION WIDTH 16.6 % (11.6-14.6)
[2019-10-27] VITALS: BP 95/56
[2019-10-27] MEDS: DIPHENHYDRAMINE 50MG/ML VIAL IV PRN ×3 (03:33→22:00)
[2019-10-27] MEDS: VANCOMYCIN 750 MG PREMIX 150 ML IV SCH ×2 (03:33→11:40)
[2019-10-27 04:00] VITALS: BP 107/62
[2019-10-27] MEDS: MORPHINE SULFATE 2 MG/ML CPJ (NOT FOR IM USE) IV PRN ×4 (04:10→20:37)
[2019-10-27 07:52] LABS: HEMATOCRIT. 30.5 % (36.0-48.0); HEMOGLOBIN. 9.8 g/dL (12.0-16.0); MEAN CORPUSCULAR HEMOGLOBIN 24.1 pg (28.0-32.0); MEAN CORPUSCULAR VOLUME 75.6 fL (81.0-99.0); PLATELET 454 x1000/uL (130-400); RED BLOOD CELL COUNT 4.04 mill/uL (4.2-5.4); RED CELL DISTRIBUTION WIDTH 16.4 % (11.6-14.6)
[2019-10-27 08:00] VITALS: BP 95/51
[2019-10-27 08:14] LABS: CHLORIDE 98 mEq/L (98-107)
[2019-10-27] MEDS: FAMOTIDINE 20MG TABLET PO SCH (08:35)
[2019-10-27] MEDS: MULTIVITAMINS,THER W-MINERALS TABLET PO SCH (08:36)
[2019-10-27] MEDS: GABAPENTIN 400MG CAPSULE PO SCH ×3 (08:36→16:13)
[2019-10-27] MEDS: MIDODRINE HCL 5MG TABLET PO SCH ×3 (08:39→16:12)
[2019-10-27] MEDS: PREDNISONE 20MG TABLET PO SCH ×2 (08:39→17:44)
[2019-10-27] MEDS: HYDROXYCHLOROQUINE SULFATE 200MG TABLET PO SCH (08:40)
[2019-10-27] MEDS: ASCORBIC ACID 250 MG TABLET PO SCH (08:40)
[2019-10-27 10:09] LABS: PLATELET ESTIMATE INCREASED
[2019-10-27] MEDS: OXYCODONE HCL/ACETAMINOPHEN 5/325MG TABLET PO PRN (11:40)
[2019-10-27 12:00] VITALS: BP 92/47
[2019-10-27 16:00] VITALS: BP 112/63
[2019-10-27] MEDS ORDERED: OXYCODONE HCL/ACETAMINOPHEN 5/325MG TABLET PO PRN (17:00)
[2019-10-27 20:00] VITALS: BP_SYST 118; BP_SYST 141; BP_DIAS 59; BP_DIAS 84
[2019-10-27] MEDS: ATORVASTATIN CALCIUM 40MG TABLET PO SCH (20:31)
[2019-10-27] MEDS: FLUOXETINE HCL 20MG CAPSULE PO SCH (20:31)
[2019-10-28] VITALS: BP 115/57
[2019-10-28] MEDS: OXYCODONE HCL/ACETAMINOPHEN 5/325MG TABLET PO PRN ×3 (01:27→14:45)
[2019-10-28 04:00] VITALS: BP 110/61
[2019-10-28 07:55] LABS: CHLORIDE 107 mEq/L (98-107)
[2019-10-28] MEDS: PREDNISONE 20MG TABLET PO SCH ×2 (08:29→17:17)
[2019-10-28] MEDS: MIDODRINE HCL 5MG TABLET PO SCH ×3 (08:29→17:16)
[2019-10-28] MEDS: GABAPENTIN 400MG CAPSULE PO SCH ×3 (08:29→17:17)
[2019-10-28] MEDS: MULTIVITAMINS,THER W-MINERALS TABLET PO SCH (08:29)
[2019-10-28] MEDS: ASCORBIC ACID 250 MG TABLET PO SCH (08:29)
[2019-10-28] MEDS: DIPHENHYDRAMINE 50MG/ML VIAL IV PRN ×2 (08:29→16:15)
[2019-10-28] MEDS: HYDROXYCHLOROQUINE SULFATE 200MG TABLET PO SCH (08:30)
[2019-10-28] MEDS: FAMOTIDINE 20MG TABLET PO SCH (08:30)
[2019-10-28 12:00] VITALS: BP 93/57
[2019-10-28] MEDS: MORPHINE SULFATE 2 MG/ML CPJ (NOT FOR IM USE) IV PRN ×2 (12:38→21:47)
[2019-10-28 16:00] VITALS: BP 111/60
[2019-10-28 17:18] LABS: HEMATOCRIT. 29.9 % (36.0-48.0); HEMOGLOBIN. 9.7 g/dL (12.0-16.0); MEAN CORPUSCULAR HEMOGLOBIN 24.4 pg (28.0-32.0); MEAN CORPUSCULAR VOLUME 74.8 fL (81.0-99.0); MEAN PLATELET VOLUME 6.7 fl (7.4-10.4); PLATELET 470 x1000/uL (130-400); RED BLOOD CELL COUNT 3.99 mill/uL (4.2-5.4); RED CELL DISTRIBUTION WIDTH 17.2 % (11.6-14.6)
[2019-10-28 18:51] LABS: PLATELET ESTIMATE INCREASED
[2019-10-28 20:00] VITALS: BP 104/64
[2019-10-28 21:47] VITALS: BP 153/71
[2019-10-28] MEDS: FLUOXETINE HCL 20MG CAPSULE PO SCH (21:52)
[2019-10-28] MEDS: ATORVASTATIN CALCIUM 40MG TABLET PO SCH (21:52)
[2019-10-29 10:09] LABS: ANTI-CARDIOLIPIN AB IGA < 9 APL U/mL (0-11); ANTI-CARDIOLIPIN AB IGG 10 GPL U/mL (0-14)
[2019-10-30 13:06] LABS: ANA IFA Negative (.)
[2019-11-02 13:06] LABS: ATYPICAL P-ANCA <1:20 titer (Neg:<1:20); CYTOPLASMIC C-ANCA <1:20 titer (Neg:<1:20); PERINUCLEAR P-ANCA <1:20 titer (Neg:<1:20)
== END 2019-10-28 23:30 | DRG 710 ==
LOC: ER 13:51 → 7WST 16:40 → ENRESERV 19:58
PROVIDERS: ADMIT Internal Medicine; ATTEND Internal Medicine
PROC: 0KBV0ZZ Excision of Right Foot Muscle, Open Approach (ICD-10-PCS; 2019-10-18)
PROC: 05HY33Z Insertion of Infusion Device into Upper Vein, Percutaneous Approach (ICD-10-PCS; principal; 2019-10-21)
PROC: B54MZZA Ultrasonography of Right Upper Extremity Veins, Guidance (ICD-10-PCS; 2019-10-21)
PROC: B51MZZA Fluoroscopy of Right Upper Extremity Veins, Guidance (ICD-10-PCS; 2019-10-21)
PROC: 30233N1 Transfusion of Nonautologous Red Blood Cells into Peripheral Vein, Percutaneous Approach (ICD-10-PCS; 2019-10-25)
PROC: 0Y6C0Z3 Detachment at Right Upper Leg, Low, Open Approach (ICD-10-PCS; 2019-10-26)
DX: A41.9 Sepsis, unspecified organism (principal); G93.40 Encephalopathy, unspecified; I50.33 Acute on chronic diastolic (congestive) heart failure; I96 Gangrene, not elsewhere classified; L89.154 Pressure ulcer of sacral region, stage 4; L89.314 Pressure ulcer of right buttock, stage 4; E46 Unspecified protein-calorie malnutrition; L89.323 Pressure ulcer of left buttock, stage 3; E11.621 Type 2 diabetes mellitus with foot ulcer; I11.0 Hypertensive heart disease with heart failure; E11.52 Type 2 diabetes mellitus with diabetic peripheral angiopathy with gangrene; D64.9 Anemia, unspecified; F10.10 Alcohol abuse, uncomplicated; L97.519 Non-pressure chronic ulcer of other part of right foot with unspecified severity; B96.20 Unspecified Escherichia coli [E. coli] as the cause of diseases classified elsewhere; D72.810 Lymphocytopenia; E78.5 Hyperlipidemia, unspecified; I27.21 Secondary pulmonary arterial hypertension; I31.3 Pericardial effusion (noninflammatory); L81.6 Other disorders of diminished melanin formation; I42.9 Cardiomyopathy, unspecified; M62.82 Rhabdomyolysis; M85.871 Other specified disorders of bone density and structure, right ankle and foot; Z16.12 Extended spectrum beta lactamase (ESBL) resistance; I70.202 Unspecified atherosclerosis of native arteries of extremities, left leg; M87.9 Osteonecrosis, unspecified; F14.10 Cocaine abuse, uncomplicated; F17.210 Nicotine dependence, cigarettes, uncomplicated; F12.10 Cannabis abuse, uncomplicated; F11.10 Opioid abuse, uncomplicated; D47.3 Essential (hemorrhagic) thrombocythemia; I25.10 Atherosclerotic heart disease of native coronary artery without angina pectoris; M32.9 Systemic lupus erythematosus, unspecified; N39.0 Urinary tract infection, site not specified; L97.929 Non-pressure chronic ulcer of unspecified part of left lower leg with unspecified severity; S80.822A Blister (nonthermal), left lower leg, initial encounter; S80.821A Blister (nonthermal), right lower leg, initial encounter; X58.XXXA Exposure to other specified factors, initial encounter; Y93.89 Activity, other specified; Y92.89 Other specified places as the place of occurrence of the external cause; Y99.8 Other external cause status; Z74.01 Bed confinement status; Z88.1 Allergy status to other antibiotic agents; Z88.2 Allergy status to sulfonamides; Z59.0 Homelessness; Z68.1 Body mass index [BMI] 19.9 or less, adult; Z79.82 Long term (current) use of aspirin; Z79.899 Other long term (current) drug therapy; Z79.84 Long term (current) use of oral hypoglycemic drugs; Z79.02 Long term (current) use of antithrombotics/antiplatelets; Z71.6 Tobacco abuse counseling; Z71.41 Alcohol abuse counseling and surveillance of alcoholic; Z71.51 Drug abuse counseling and surveillance of drug abuser
CPT/HCPCS: 36415; 36573; 36600; 71045; 73552; 73590; 73630; 74176; 76937; 80048; 80053; 80061; 80202; 80305; 81003; 82085; 82140; 82164; 82375; 82550; 82553; 82805; 82955; 83520; 83605; 83615; 83735; 83880; 84100; 84134; 84145; 84156; 84439; 84443; 84484; 85025; 85027; 85041; 85044; 85379; 85613; 85651; 85732; 86038; 86147; 86160; 86225; 86235; 86256; 86431; 86592; 86705; 86709; 86780; 86803; 86850; 86880; 86900; 86920; 87077; 87186; 87340; 87389; 88307; 88311; 93005; 93306; 93923; 96365; 96367; 96375; 97162; 97166; 99291; C1725; C1893; J0690; J1100; J1170; J1200; J2185; J2250; J2270; J2370; J2543; J3010; J3370; J3490; J7030; J7040; J7050; J7060; J7512; J7620; P9016; A4315